=== PATIENT | female | born 1955 | race Native Hawaiian/Other Pacific Islander ===

== ENCOUNTER 2017-08-02 14:27 | Outpatient (CLI) | payer BC | END 2017-08-02 15:30 | disposition home or self-care (01) | LOC: RAD 14:27 | DX: J40 Bronchitis, not specified as acute or chronic (principal) ==

== ENCOUNTER 2018-05-27 11:08 | Outpatient (CLI) | payer BC | END 2018-05-27 19:47 | disposition home or self-care (01) | LOC: RESP 11:08 | DX: J45.998 Other asthma (principal) ==

== ENCOUNTER 2018-09-13 12:03 | Outpatient (CLI) | payer BC | END 2018-09-13 22:08 | disposition home or self-care (01) | LOC: NM 12:03 | DX: R11.2 Nausea with vomiting, unspecified (principal) | CPT/HCPCS: A9537 ==

== ENCOUNTER 2018-10-27 11:24 | Outpatient (CLI) | payer BC | END 2018-10-27 20:36 | disposition home or self-care (01) | LOC: RAD 11:24 | DX: M43.16 Spondylolisthesis, lumbar region (principal) ==

== ENCOUNTER 2021-11-13 13:35 | Outpatient (CLI) | payer OTHER ==
[2021-11-13 14:30] LABS: PLATELET COUNT 262 K/uL (152-353)
[2021-11-13 14:49] LABS: POTASSIUM 4.2 mmol/L (3.6-5.2)
== END 2021-11-13 19:15 | disposition home or self-care (01) ==
LOC: LAB 13:35
PROVIDERS: ATTEND Internal Medicine
DX: I10 Essential (primary) hypertension (principal); E78.5 Hyperlipidemia, unspecified
CPT/HCPCS: 80053; 80061; 81000; 84439; 84443; 85027

== ENCOUNTER 2022-11-24 11:50 | Outpatient (CLI) | payer OTHER ==
[2022-11-24 12:13] LABS: PLATELET COUNT 304 K/uL (152-353)
[2022-11-24 13:10] LABS: POTASSIUM 4.1 mmol/L (3.6-5.2)
== END 2022-11-24 19:37 | disposition home or self-care (01) ==
LOC: LAB 11:50
PROVIDERS: ATTEND Internal Medicine
DX: I10 Essential (primary) hypertension (principal); E78.49 Other hyperlipidemia; E55.9 Vitamin D deficiency, unspecified
CPT/HCPCS: 80053; 80061; 81002; 82306; 84439; 84443; 85027

== ENCOUNTER 2023-06-01 14:43 | Outpatient (CLI) | payer OTHER ==
[2023-06-01 15:36] LABS: POTASSIUM 4.3 mmol/L (3.6-5.2)
== END 2023-06-01 20:34 | disposition home or self-care (01) ==
LOC: LAB 14:43
PROVIDERS: ATTEND Internal Medicine
DX: E78.49 Other hyperlipidemia (principal)
CPT/HCPCS: 80053; 80061